=== PATIENT | female | born 1975 | race African-American/Black ===

== ENCOUNTER 2024-02-15 16:50 | Emergency (ER) | payer SELFPAY ==
[~2024-02-15] VITALS: Ht 167.6 cm; Wt 66.0 kg
[2024-02-15 16:57] VITALS: O2SAT 100
[2024-02-15] MEDS ORDERED: IBUP-2029 MT (17:51)
[2024-02-15] MEDS ORDERED: AMOX1TAB16 MT (17:51)
[2024-02-15] MEDS: KETOROLAC 30MG/ML VIAL IM ONE (18:08)
[2024-02-15 18:17] VITALS: BP 149/88; PULSE 100; RESP 18; TEMP 98.1
== END 2024-02-15 18:17 | disposition home or self-care (01) ==
LOC: ER 16:50
DX: K04.7 Periapical abscess without sinus (principal)
CPT/HCPCS: 96372; 99283; J1885; Z7610 ×2